=== PATIENT | male | born 1990 | race Caucasian/White ===

== ENCOUNTER → 2020-03-19 08:12 | Outpatient (CLI) | payer SELFPAY ==
--- NOTE | 2020-03-19 08:14 | US_ITS ---
STUDY: SCROTUM ULTRASOUND REASON FOR EXAM: Male, 30 years old. RT TESTICLE SWELLING TECHNIQUE: Ultrasound evaluation of the scrotum was performed with color Doppler and static davis-scale imaging. COMPARISON: None. FINDINGS: RIGHT TESTICLE INTRATESTICULAR: There is a normal size of the right testicle. The right testicle measures 3.6 cm x 2.5 cm x 1.8 cm. There is a homogenous echotexture. There is normal arterial and normal venous vascularity. There is no demonstrated right testicular mass or cyst. EXTRATESTICULAR: The epididymis is mildly enlarged. The epididymis head measures 9 mm x 16 mm x 10 mm. There is increased (hyperemic) vascularity of the epididymis. There is no demonstrated epididymal cystic structure. There is no demonstrated hydrocele. There is no demonstrated varicocele. There is no demonstrated extratesticular mass or cyst. LEFT TESTICLE INTRATESTICULAR: There is a normal size of the left testicle. The left testicle measures 3.8 cm x 2.27 x 1.8 cm. There is a homogenous echotexture. There is normal arterial and normal venous vascularity. There is no demonstrated left testicular mass or cyst. EXTRATESTICULAR: The epididymis is normal in size. The epididymis head measures 2.9 cm x 1.4 cm x 0.8 cm. There is normal vascularity of the epididymis. There is no demonstrated epididymal cystic structure. There is a small hydrocele. There is no demonstrated varicocele. There is no demonstrated extratesticular mass or cyst. US/Testicular with Arterial Flow IMPRESSION: Small left hydrocele. Mild enlargement of the right epididymis with increased vascularity. This is suggestive of epididymitis. Electronically Signed: Orville Martinez MD at 13:07 EST , Service support ,
== END ==
LOC: US 08:14
PROVIDERS: PCP Family Medicine; Referring Provider Family Medicine; Visit Provider Family Medicine
DX: N50.89 Other specified disorders of the male genital organs (principal)
CPT/HCPCS: 76870; 93976

== ENCOUNTER → 2020-03-30 10:32 | Outpatient (CLI) | payer SELFPAY ==
[2014-03-10 11:45] VITALS: BMI 18.2
[2020-03-30 14:50] LABS: Chlamydia Trachomatis by PCR Negative (Negative); Neisserai gonorrhoeae by PCR Negative (Negative); Probe Check PASS; Sample Adequacy Control PASS; Specimen Processing Control PASS
== END ==
PROVIDERS: PCP Family Medicine; Referring Provider Family Medicine; Visit Provider Family Medicine
DX: N45.1 Epididymitis (principal)
CPT/HCPCS: 87491; 87591